=== PATIENT | female | born 1995 | race African-American/Black ===

== ENCOUNTER 2022-11-07 18:01 | Day surgery (SDC) | payer OTHER ==
[2022-11-07 18:32] VITALS: BMI 42.7
[2022-11-07] MEDS ORDERED: hydrALAZINE 20 MG/ML VIAL SLOW IVP PRN (20:50)
[2022-11-07] MEDS ORDERED: Promethazine HCl 25 MG/ML VIAL IM SCH (21:00)
[2022-11-07] MEDS ORDERED: Morphine 4 MG/ML VIAL IM SCH ×2 (21:00)
[2022-11-07] MEDS ORDERED: Morphine 4 MG/ML VIAL ONE (21:13)
[2022-11-07] MEDS ORDERED: Promethazine HCl 25 MG/ML VIAL ONE (21:17)
== END 2022-11-07 21:30 | disposition home or self-care (01) ==
LOC: CSHLD/OP 18:01
PROVIDERS: ATTEND Family Medicine
DX: O47.03 False labor before 37 completed weeks of gestation, third trimester (principal); Z3A.36 36 weeks gestation of pregnancy
CPT/HCPCS: 96372; 99282; J2270; J2550

== ENCOUNTER 2022-11-16 01:26 | Inpatient (IN) | payer OTHER ==
[2022-11-16 01:59] VITALS: BMI 43.2
[2022-11-16] MEDS ORDERED: Ondansetron PF 4 MG/2 ML Vial IVP PRN ×2 (02:15→05:51)
[2022-11-16] MEDS ORDERED: hydrALAZINE 20 MG/ML VIAL SLOW IVP PRN ×2 (02:15→05:51)
[2022-11-16] MEDS ORDERED: Misoprostol 200 MCG TAB RC PRN (02:15)
[2022-11-16] MEDS ORDERED: Promethazine HCl 25 MG/ML VIAL IM PRN (02:15)
[2022-11-16] MEDS ORDERED: HYDROcodone/Acetaminophen 5/325 mg Tablet PO PRN (02:15)
[2022-11-16] MEDS ORDERED: NS w/ Oxytocin 30 units 500 ML IVPB SCH (02:15)
[2022-11-16] MEDS ORDERED: Carboprost 250 MCG/ML AMP IM PRN (02:15)
[2022-11-16] MEDS ORDERED: Lidocaine 1% (PF) 30 ML VIAL SC PRN (02:15)
[2022-11-16] MEDS ORDERED: Ibuprofen 800 MG TAB PO PRN (02:15)
[2022-11-16] MEDS ORDERED: Diphenoxylate HCl/Atropine Tablet PO PRN (02:15)
[2022-11-16] MEDS ORDERED: Lactated Ringer's 1,000 ML IV SCH (02:15)
[2022-11-16] MEDS ORDERED: Methylergonovine 0.2 MG/ML VIAL IM PRN (02:15)
[2022-11-16] MEDS ORDERED: NS w/ Oxytocin 30 units 500 ML IV SCH (02:15)
[2022-11-16 02:25] LABS: Hematocrit 33.7 % (34.9-44.5); Hemoglobin 10.7 g/dL (12.0-15.5); Mean Corpuscular HGB CONC 31.8 g/dL (32.0-36.0); Mean Corpuscular Hemoglobin 25.6 pg (27.0-33.0); Mean Corpuscular Volume 80.6 fl (81.6-98.3); Mean Platelet Volume 11.7 fl (7.4-10.4); Platelet Count 253 10x3/uL (150-450); RBC Distribution Width 14.1 % (11.5-14.5); Red Blood Cell (RBC) Count 4.18 10x6/uL (3.90-5.03); White Blood Cell (WBC) Count 11.6 10x3/uL (3.5-10.5)
[2022-11-16] MEDS ORDERED: Penicillin G Potassium 5 MILL.UNITS in Sodium Chloride 0.9% 100 ML IVPB SCH (02:30)
[2022-11-16] MEDS ORDERED: fentaNYL/Ropivacaine Epidural 100 ML ONE (02:52)
[2022-11-16 02:57] LABS: HBSAg Index 0.17 S/CO (0-0.99); Hep B Surf Ag - L&D Non-Reactive S/CO (NonReactive); Syphilis Antibody Nonreactive (Nonreactive); Syphilis Antibody Index 0.13 S/CO (<1.00 Non-Reactive)
[2022-11-16] MEDS ORDERED: fentaNYL 50 mcg/mL 1 mL Vial ONE (04:23)
[2022-11-16] MEDS ORDERED: Lidocaine 1% (PF) 30 ML VIAL ONE (04:31)
[2022-11-16] MEDS ORDERED: Boostrix 0.5 ML (Tdap) VIAL (>/=7 yrs of age) IM ONE (05:51)
[2022-11-16] MEDS ORDERED: Milk Of Magnesia 30 ML UDCUP PO PRN (05:51)
[2022-11-16] MEDS ORDERED: diphenhydrAMINE 25 MG CAP PO PRN (05:51)
[2022-11-16] MEDS ORDERED: Benzocaine-Menthol 82.5 ML CAN TOP PRN (05:51)
[2022-11-16] MEDS ORDERED: Bisacodyl 10 MG SUPP PR PRN (05:51)
[2022-11-16] MEDS: HYDROcodone/Acetaminophen 5/325 mg Tablet PO PRN ×4 (06:10→21:06)
[2022-11-16] MEDS ORDERED: Penicillin G 2.5 MILL.units 2.5 MILL.UNITS in Premix Bag 1 BAG IVPB SCH (06:30)
[2022-11-16] MEDS: Ibuprofen 800 MG TAB PO SCH ×3 (08:51→21:07)
[2022-11-16] MEDS: Prenatal Vitamin 1 TAB PO SCH (08:52)
[2022-11-16] MEDS: Docusate 100 MG CAP PO SCH ×2 (08:52→21:07)
[2022-11-16] MEDS: Ferrous Sulfate 325 MG TAB PO SCH ×2 (08:52→17:34)
[2022-11-16] MEDS ORDERED: Bupivacaine PF 0.5% 30 ML VIAL ONE (20:14)
[2022-11-16] MEDS ORDERED: Bupivacaine 0.25% HCL 30 ML VIAL ONE (20:14)
[2022-11-17] MEDS: Ibuprofen 800 MG TAB PO SCH ×3 (06:09→22:50)
[2022-11-17] MEDS: Ferrous Sulfate 325 MG TAB PO SCH ×2 (07:23→18:51)
[2022-11-17] MEDS: Prenatal Vitamin 1 TAB PO SCH (10:07)
[2022-11-17] MEDS: Docusate 100 MG CAP PO SCH ×2 (10:07→22:50)
[2022-11-17] MEDS: HYDROcodone/Acetaminophen 5/325 mg Tablet PO PRN ×3 (10:07→22:49)
[2022-11-18] MEDS: HYDROcodone/Acetaminophen 5/325 mg Tablet PO PRN (03:40)
[2022-11-18] MEDS: Ibuprofen 800 MG TAB PO SCH (05:32)
[2022-11-18] MEDS: Ferrous Sulfate 325 MG TAB PO SCH (07:14)
[2022-11-18] MEDS ORDERED: Bupivacaine PF 0.5% 30 ML VIAL ONE (08:00)
[2022-11-18] MEDS ORDERED: Bupivacaine 0.25% HCL 30 ML VIAL ONE (08:00)
[2022-11-18] MEDS: Prenatal Vitamin 1 TAB PO SCH (08:31)
[2022-11-18] MEDS: Docusate 100 MG CAP PO SCH (08:31)
[2022-11-18 11:33] VITALS: TEMP 98.2
[2022-11-18 11:34] VITALS: BP 138/80
== END 2022-11-18 12:15 | disposition home or self-care (01) | DRG 807 ==
LOC: CSHLD/OP 01:26 → CSHLD 02:00 → CSHPED 08:30
PROVIDERS: ADMIT Family Medicine; ATTEND Family Medicine
PROC: 10E0XZZ Delivery of Products of Conception, External Approach (ICD-10-PCS; principal; 2022-11-16)
DX: O99.824 Streptococcus B carrier state complicating childbirth (principal); Z37.0 Single live birth; Z3A.37 37 weeks gestation of pregnancy
CPT/HCPCS: 36415; 51701; 85027; 86780; 86850; 86900; 86901; 87340; 99285; J2540; J3490; S0020

== ENCOUNTER 2022-11-22 15:37 | Emergency (ER) | payer OTHER ==
[2022-11-22 19:04] LABS: #Eosinphils 0.1 10x3/uL (0.0-0.5); #Monocytes 0.9 10x3/uL (0.0-1.1); #Neutrophils 6.4 10x3/uL (1.5-8.4); %Basophils 0.3 % (0.0-2.0); %Eosinophils 0.6 % (0.0-6.0); %Lymphocytes 30.1 % (18.0-47.0); %Monocytes 8.1 % (0.0-10.0); %Neutrophils 60.2 % (40.0-75.0); Hematocrit 36.5 % (34.9-44.5); Hemoglobin 11.3 g/dL (12.0-15.5); Mean Corpuscular Hemoglobin 25.7 pg (27.0-33.0); Mean Corpuscular Volume 83.1 fl (81.6-98.3); Mean Platelet Volume 11.2 fl (7.4-10.4); Platelet Count 328 10x3/uL (150-450); RBC Distribution Width 15.1 % (11.5-14.5); Red Blood Cell (RBC) Count 4.39 10x6/uL (3.90-5.03); White Blood Cell (WBC) Count 10.5 10x3/uL (3.5-10.5)
[2022-11-22 19:21] LABS: ALT (SGPT) 79 U/L (8-55); AST (SGOT) 49 U/L (5-34); Albumin 3.2 g/dL (3.5-5.0); Alkaline Phosphatase 110 U/L (40-110); Anion Gap 14 mmol/L (10-20); BUN (Urea Nitrogen) 10 mg/dL (7.0-18.7); Bilirubin, Total 0.3 mg/dL (0.2-1.2); Calc. Creatinine Clearance 0 mL/min (70-130); Calcium 8.6 mg/dL (7.8-10.44); Carbon Dioxide 21 mmol/L (22-29); Chloride 112 mmol/L (98-107); Estimated GFR 99; Glucose 95 mg/dL (70-105); Protein, Total 6.2 g/dL (6.0-8.3); Sodium 143 mmol/L (136-145)
[2022-11-22] MEDS ORDERED: Dicyclomine 20 MG TAB PO SCH (20:00)
[2022-11-22] MEDS ORDERED: Dicyclomine 20 MG TAB ONE (20:16)
== END 2022-11-22 20:30 | disposition home or self-care (01) ==
LOC: CSHERS 15:37
DX: O99.63 Diseases of the digestive system complicating the puerperium (principal); K59.00 Constipation, unspecified
CPT/HCPCS: 80053; 83690; 85025; 99284